=== PATIENT | male | born 1980 | race Caucasian/White ===

== ENCOUNTER 2018-01-20 17:21 | Emergency (ER) | payer OTHER ==
[2018-01-20] MEDS ORDERED: ONDANSETRON 4 MG/2 ML VIAL IVP ONE (17:29)
[2018-01-20] MEDS ORDERED: HYDROmorphONE/DILAUDID 2 MG/ML INJ IVP ONE (17:29)
--- NOTE | 2018-01-20 17:30 | EDPHY ---
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 2 lacerations controlled with direct pressure, has a moderate headache. Associated on arrival with double vision. His chronic neck pain but no changes and no weakness or numbness in extremities. No loss of consciousness and no vomiting. REVIEW OF SYSTEMS: Eye: HPI ENT: no sore throat Cardiac: no chest pain or syncope Pulmonary: no cough or SOB Abdomen: no vomiting Musculoskeletal: no back pain, chronic neck pain Skin: Skin laceration Neuro: HPI Constitutional: no fever : no urinary symptoms A comprehensive 10 point review of systems is otherwise negative aside from elements mentioned in the history of present illness. 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 Eyes: No scleral icterus. Pupils equal reactive extraocular motion intact. ENT, Mouth: Normal mucous membranes. Respiratory: Normal respiratory effort, breath sounds equal, lungs are clear to auscultation. Cardiovascular: Regular rate and rhythm. Gastrointestinal: Abdomen is soft and non tender. Neurological: Alert, face symmetric, normal motor and sensory in extremities. The fluent speech, normal mentation. Skin: 2 lacerations each 2 cm us on the vertex of the scalp. Musculoskeletal: No cervical thoracic or lumbar spine tenderness to palpation. Psychiatric: Not agitated. Emergency Department course/MDM: CT head ordered for head trauma with double vision and abnormal neurologic complaint. Lacerations anesthetized and sutured. Cervical spine cleared clinically. Constitutional: Initial Vital Signs Temperature (C) 36.9 C 01/20/18 17:29 Heart Rate 120 H 01/20/18 17:29 Respiratory Rate 18 01/20/18 17:29 Blood Pressure 173/125 H 01/20/18 17:29 O2 Sat (%) 92 01/20/18 17:29 O2 Delivery Mode Room Air Allergies/Adverse Reactions: fentanyl Allergy (Verified 01/20/18 17:29) Penicillins Allergy (Verified 01/20/18 17:29) Home Medications: Medication Instructions Recorded Hydrocodone/APAP 5/325 [[place] 1 tab PO Q4-6PRN PRN #5 tab 01/20/18 5/325] Medical Decision Making - Diagnostics Imaging Results: Imaging Impressions Head CT 01/20/18 17:29 Impression: Left frontal scalp laceration with no acute intracranial findings. Findings discussed with Dr. Ryan Frost on 01/20/2018 at 17:55. Negative head CT for intracranial trauma per Dr. Zacarias at 5:56 p.m.. Imaging: Discussed imaging studies w/ house calls nurse Radiologist Procedures: Procedure: Laceration repair. Verbal consent was obtained from the patient. The total 4 cm laceration on the scalp vertex was anesthetized using 0.5% bupivacaine with epinephrine. The wound was irrigated with standard emergency department protocol, draped and explored. There were no deep structures involved. No foreign body found. The wound was repaired with 4 0 Prolene. The wound repair was simple. Excellent hemostasis was obtained. Wound care instructions were discussed and the patient was warned regarding scarring. The procedure was performed by myself. Differential Diagnosis: Differential diagnosis considered for head injury including but not limited to concussion, skull fracture, intraparenchymal contusion, subarachnoid, subdural and epidural hematoma. - Data Points Medications Given: Discontinued Medications Hydromorphone HCl (Dilaudid) 0.5 mg IVP EDNOW ONE Stop: 01/20/18 17:30 Last Admin: 01/20/18 17:32 Dose: 0.5 mg Ondansetron HCl (Zofran) 4 mg IVP EDNOW ONE Stop: 01/20/18 17:30 Last Admin: 01/20/18 17:34 Dose: Not Given Departure - Departure Disposition: Home, Routine, Self-Care Clinical Impression: Concussion Qualifiers: Encounter type: initial encounter Loss of consciousness presence/duration: without LOC Qualified Code(s): S06.0X0A - Concussion without loss of consciousness, initial encounter Laceration of scalp Qualifiers: Encounter type: initial encounter Qualified Code(s): S01.01XA - Laceration without foreign body of scalp, initial encounter Condition: Good Instructions: Care For Your Stitches (ED), Concussion (ED) Additional Instructions: Wound Care Follow-Up: Removal of sutures in 10 days. Suture removal is complimentary in uncomplicated cases. Infection or abnormal findings would require reevaluation by the MD. In that case, you may be billed. Referrals: Work Comp Ref/Restrictions [Outside] - 1 day without fail (No work for 24 hr. Please follow-up at work comp clinic tomorrow to re-evaluate for concussion and appropriate date and time to return to work.) Prescriptions: Hydrocodone/APAP 5/325 [[place] 5/325] 1 tab PO Q4-6PRN PRN #5 tab PRN Reason: For Pain
[2018-01-20 18:24] VITALS: BP 134/107
== END 2018-01-20 18:37 | disposition home or self-care (01) ==
PROC: 0HQ0XZZ Repair Scalp Skin, External Approach (ICD-10-PCS; principal; 2018-01-20)
DX: S06.0X0A Concussion without loss of consciousness, initial encounter (principal); S01.01XA Laceration without foreign body of scalp, initial encounter; W22.8XXA Striking against or struck by other objects, initial encounter; Y92.513 Shop (commercial) as the place of occurrence of the external cause; Y99.8 Other external cause status; Y93.89 Activity, other specified
CPT/HCPCS: 96374; J1170; J2405

== ENCOUNTER 2018-02-03 09:55 | Emergency (ER) | payer SELFPAY ==
[2018-02-03] MEDS ORDERED: ONDANSETRON DISINTEGRATING 4 MG TAB PO ONE (10:00)
[2018-02-03] MEDS ORDERED: ONDANSETRON 4 MG/2 ML VIAL IVP ONE (10:27)
[2018-02-03] MEDS ORDERED: NS 1,000 ML IV ONE ×3 (10:27→11:50)
[2018-02-03] MEDS ORDERED: LORazepam 2 MG/ML INJ IVP ONE (10:35)
[2018-02-03 11:15] LABS: PLATELET COUNT 190 10^3/uL (150-400)
[2018-02-03] MEDS ORDERED: PANTOPRAZOLE SODIUM 40 MG VIAL IVP ONE (11:50)
[2018-02-03] MEDS ORDERED: PROMETHAZINE HCL 25 MG/ML INJ IVP ONE (13:28)
--- NOTE | 2018-02-03 16:07 | EDPHY ---
H & P Smoking Status: Current every day smoker Time Seen by Provider: 02/03/18 10:32 HPI/ROS: CHIEF COMPLAINT: Vomiting HISTORY OF PRESENT ILLNESS: 37-year-old male presents to the emergency department with multiple episodes of vomiting that began 2 days ago. The patient states that he has vomited over 30 times. He had similar episodes a number of years ago and was seen by Gastroenterology. He had a scope and was on omeprazole which she has not since taken. He denies diarrhea. He describes diffuse abdominal pain. He feels chilled and achy. No recent travel. No known ill contacts. He states the had 1 Dinorah that he splint with his girlfriend 2 days ago. She is not ill. No rectal bleeding. No melena. REVIEW OF SYSTEMS: Constitutional: No fever, no chills. Eyes: No double or blurry vision. ENT: No sore throat. Respiratory: No cough, no shortness of breath. Cardiac: No chest pain. Gastrointestinal: Vomiting as above. No diarrhea. Genitourinary: No dysuria. Musculoskeletal: No neck or back pain. Skin: No rashes. Neurological: No headache. (Yusra Kyle) Past Medical/Surgical History: Appendectomy, orthopedic injury (Rosalia Kylea M) Social History: Single and lives in [place] (Anabella,Yusra M) Physical Exam: General Appearance: Alert, no distress. Eyes: Pupils equal and round. Extraocular motions are all intact. ENT: Mouth: Mucous membranes moist. Respiratory: No wheezing, rhonchi, or rales, lungs are clear to auscultation. Cardiovascular: Regular rate and rhythm. Gastrointestinal: Abdomen is soft. Patient has some mild diffuse tenderness with palpation the abdomen. There is no rebound, guarding or masses noted. No CVA tenderness bilaterally. Neurological: Alert and oriented x 3, cranial nerves II through XII grossly intact Skin: Warm and dry, no rashes. Musculoskeletal: Nontender to palpate along the cervical, thoracic or lumbar spine. Neck is supple. Extremities: Full range of motion and no peripheral edema. Psychiatric: Patient is oriented X 3, there is no agitation. (Yusra Kyle M) Constitutional: Initial Vital Signs Heart Rate 105 H 02/03/18 10:00 Respiratory Rate 18 02/03/18 10:00 O2 Sat (%) 92 05/29/18 10:00 O2 Delivery Mode Room Air Allergies/Adverse Reactions: fentanyl Allergy (Verified 01/20/18 17:29) Penicillins Allergy (Verified 01/20/18 17:29) Home Medications: Medication Instructions Recorded oxyCODONE/APAP 5/325 [Percocet] 1 tab PO Q4-6PRN PRN #5 tab 01/20/18 Medical Decision Making ED Course/Re-evaluation: 37-year-old male presents to the emergency department with multiple episodes of nausea and vomiting. While the patient was in the emergency department, he continued to feel nauseous despite the oral Zofran. He was given IV Ativan and IV Phenergan. He was feeling better. While he was in the emergency department he also developed 2 episodes of diarrhea. The patient was monitored for several hours in the emergency department. This was because he continued to feel nauseous. He was able to drink some juice and was feeling better. I did offer obtaining CT scan of the abdomen and pelvis, however the patient declined. He elected to go home and drink mostly clear liquids and if his pain returns or if he had recurring vomiting, he will return to the emergency department. (Yusra Kyle) Differential Diagnosis: Including but not limited to gastritis, gastroenteritis, dehydration, electrolyte abnormality, colitis (Yusra Kyle) Other Provider: The patient was evaluated and managed by the Physician Legal Associate. My co- signature indicates that I have reviewed this chart and I agree with the findings and plan of care as documented. I am the secondary supervising physician. (Tiffanie Carmen) - Data Points Laboratory Results: Laboratory Results 02/03/18 10:25 02/03/18 10:25 Medications Given: Discontinued Medications Sodium Chloride (Ns) 1,000 mls @ 0 mls/hr IV ONCE ONE PRN Reason: Wide Open Stop: 02/03/18 10:28 Last Admin: 02/03/18 10:30 Dose: 1,000 mls Sodium Chloride (Ns) 1,000 mls @ 0 mls/hr IV ONCE ONE PRN Reason: Wide Open Stop: 02/03/18 10:35 Last Admin: 02/03/18 10:53 Dose: Not Given Sodium Chloride (Ns) 1,000 mls @ 0 mls/hr IV ONCE ONE PRN Reason: Wide Open Stop: 02/03/18 11:51 Last Admin: 02/03/18 12:03 Dose: 1,000 mls Lorazepam (Ativan Injection) 1 mg IVP EDNOW ONE Stop: 02/03/18 10:36 Last Admin: 02/03/18 10:52 Dose: 1 mg Ondansetron HCl (Zofran Odt) 4 mg PO EDNOW ONE Stop: 02/03/18 10:01 Last Admin: 02/03/18 10:20 Dose: 4 mg Ondansetron HCl (Zofran) 4 mg IVP EDNOW ONE Stop: 02/03/18 10:28 Last Admin: 02/03/18 10:30 Dose: 4 mg Pantoprazole Sodium (Protonix) 40 mg IVP EDNOW ONE Stop: 02/03/18 11:51 Last Admin: 02/03/18 12:03 Dose: 40 mg Promethazine HCl (Phenergan) 12.5 mg IVP EDNOW ONE Stop: 02/03/18 13:29 Last Admin: 02/03/18 13:38 Dose: 12.5 mg Departure - Departure Disposition: Home, Routine, Self-Care Clinical Impression: Vomiting, Dehydration, Abdominal pain Condition: Good Instructions: Acute Nausea and Vomiting (ED), Acute Abdominal Pain (ED) Additional Instructions: You declined CT imaging of your abdomen and pelvis. Abdominal Pain: Return to the Emergency Department immediately for increasing pain, fever, vomiting, or if not completely better in 8-12 hours. Clear liquids and then advance diet as tolerated. Referrals: Anne Mcelroy, DO [Doctor of Osteopathy] - 1 day, if not improved (Primary care provider contracting support specialist) Stand Alone Forms: Work Excuse
[2018-02-03 16:23] VITALS: BP 142/107
== END 2018-02-03 16:41 | disposition home or self-care (01) ==
DX: R11.2 Nausea with vomiting, unspecified (principal); R10.84 Generalized abdominal pain; E86.0 Dehydration; F17.200 Nicotine dependence, unspecified, uncomplicated; Z90.49 Acquired absence of other specified parts of digestive tract
CPT/HCPCS: 96374; J2060; J2550